=== PATIENT | female | born 1985 | race Caucasian/White ===

== ENCOUNTER → 2022-06-07 | Outpatient (CLI) | payer BC ==
[~2022-06-07] MED LIST: COLACE100 MG PO; JUNEL FE 1.5 M1 EACH PO; NORCO 7.5-3251 EACH PO; PREVACID15 MG PO; PROZAC40 MG PO
[2022-06-07 10:23] LABS: RED BLOOD COUNT 4.71 M/UL (4.00-5.10)
[2022-06-07 18:20] LABS: BUN/CREATININE RATIO 20 (0-10)
== END ==
LOC: LAB 09:05
PROVIDERS: Nurse Practitioner Family
DX: E78.5 Hyperlipidemia, unspecified (principal); I10 Essential (primary) hypertension; E55.9 Vitamin D deficiency, unspecified
CPT/HCPCS: 36415; 80053; 80061; 82570; 82607; 83036; 84156; 84439; 84443; 85025

== ENCOUNTER → 2022-06-28 | Outpatient (CLI) | payer BC | LOC: HEART 5 08:29 | DX: I34.1 Nonrheumatic mitral (valve) prolapse (principal); I11.9 Hypertensive heart disease without heart failure | CPT/HCPCS: 93306 ==